=== PATIENT | male | born 1990 | race Caucasian/White ===

== ENCOUNTER 2019-04-08 13:43 | Emergency (ER) | payer OTHER ==
[~2019-04-08] VITALS: Ht 188 cm; Wt 111.1 kg
[2019-04-08 13:48] VITALS: Ht 188 cm; Wt 111.1 kg
[2019-04-08 17:10] VITALS: BP 147/95
== END 2019-04-08 17:10 | disposition home or self-care (01) ==
LOC: ED 13:43
DX: S29.012A Strain of muscle and tendon of back wall of thorax, initial encounter (principal); S16.1XXA Strain of muscle, fascia and tendon at neck level, initial encounter; S20.212A Contusion of left front wall of thorax, initial encounter; V43.62XA Car passenger injured in collision with other type car in traffic accident, initial encounter; Y93.I9 Activity, other involving external motion; Y92.488 Other paved roadways as the place of occurrence of the external cause; Y99.8 Other external cause status
CPT/HCPCS: 72072